=== PATIENT | female | born 2000 | race Caucasian/White ===

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

== ENCOUNTER 2019-02-10 18:27 | Emergency (ER) | payer OTHER ==
[~2019-02-10] VITALS: Ht 154.9 cm; Wt 62.5 kg
[~2019-02-10 18:27] MED LIST: CLOB0.0548 TOP; DOXY100C37 PO; INTU1TAB PO; KETO2CR; MICR1TAB18; NORE1TAB7
[2019-02-10 18:28] VITALS: BP 119/67
[2019-02-10] MEDS ORDERED: TRIA1OI80 TOP (19:17)
[2019-02-10] MEDS ORDERED: CLAR10CA3 PO (19:17)
== END 2019-02-10 19:28 | disposition home or self-care (01) ==
LOC: M ED 18:27
DX: L20.9 Atopic dermatitis, unspecified (principal); J30.2 Other seasonal allergic rhinitis; L71.0 Perioral dermatitis; L30.9 Dermatitis, unspecified; F41.9 Anxiety disorder, unspecified; F90.9 Attention-deficit hyperactivity disorder, unspecified type; R51 Headache

== ENCOUNTER → 2020-02-08 | Outpatient (CLI) | payer OTHER ==
[~2020-02-08] MED LIST changes: +CLAR10CA3 PO; +TRIA1OI80 TOP
--- NOTE | 2020-02-08 13:02 | REP ---
RIGHT ANKLE, FIVE VIEWS: There is no evidence of an acute fracture, dislocation or intrinsic bone disease. IMPRESSION: No fracture or dislocation. Electronically Signed by Obed Serrano MD 02/08/2020 01:12 P
== END ==
LOC: M LRY 11:21
PROVIDERS: ATTEND Nurse Practitioner Family
DX: S99.911A Unspecified injury of right ankle, initial encounter (principal); X58.XXXA Exposure to other specified factors, initial encounter; Y92.89 Other specified places as the place of occurrence of the external cause; Y93.9 Activity, unspecified; Y99.9 Unspecified external cause status